=== PATIENT | male | born 1960 | race Two or more races ===

== ENCOUNTER 2017-03-15 21:59 | Inpatient (IN) | payer OTHER ==
[~2017-03-15] VITALS: Ht 172.7 cm; Wt 94.8 kg
[2017-03-15] MEDS ORDERED: LABETALOL 5MG/ML, 20ML IVPush ONE (22:30)
[2017-03-15 22:48] LABS: HEMATOCRIT 43.2 % (39.2-51.8); HEMOGLOBIN 14.8 g/dL (13.7-18.0); WHITE BLOOD COUNT 9.1 x10^3/uL (3.4-10)
[2017-03-15] MEDS ORDERED: LABETALOL 5MG/ML, 20ML ONE (22:52)
[2017-03-15 22:59] LABS: BLOOD UREA NITROGEN 28 mg/dL (7-18)
[2017-03-15] MEDS ORDERED: ASPIRIN 81 MG TABLET CHEW PO ONE (23:00)
[2017-03-15] MEDS ORDERED: ASPIRIN 325 MG TABLET ONE (23:19)
[2017-03-15] MEDS ORDERED: hydrALAzine 20 MG/ML, 1ML IV ONE (23:30)
[2017-03-15] MEDS ORDERED: hydrALAzine 20 MG/ML, 1ML ONE (23:41)
[2017-03-15] MEDS ORDERED: METF25CR PO (23:58)
[2017-03-16] MEDS ORDERED: SODIUM CHLORIDE FLUSH 10ML SYR IVF PRN (00:30)
[2017-03-16] MEDS ORDERED: ENALAPRILAT 1.25 MG/ML, 2ML IV PRN (01:00)
[2017-03-16] MEDS ORDERED: LABETALOL 5MG/ML, 20ML IVPush PRN (01:00)
[2017-03-16] MEDS ORDERED: hydrALAzine 20 MG/ML, 1ML IV PRN (01:00)
[2017-03-16] MEDS ORDERED: NS + 20MEQ KCL 1,000 ML IV SCH (01:01)
[2017-03-16] MEDS ORDERED: POLYETHYLENE GLYCOL 17 GM PACKET PO PRN (01:30)
[2017-03-16] MEDS ORDERED: HYDROcodone/APAP 5/325 TABLET PO PRN (01:30)
[2017-03-16] MEDS ORDERED: DOCUSATE 100 MG CAPSULE PO PRN (01:30)
[2017-03-16] MEDS ORDERED: morphine SULFATE 10 MG/ML, 1ML IVPush PRN (01:30)
[2017-03-16] MEDS ORDERED: ACETAMINOPHEN 325 MG TABLET PO PRN (01:30)
[2017-03-16] MEDS ORDERED: ONDANSETRON 2MG/ML, 2ML IVPush PRN (01:30)
[2017-03-16] MEDS ORDERED: hydrALAzine 20 MG/ML, 1ML ONE (03:10)
[2017-03-16] MEDS ORDERED: ENOXAPARIN 40 MG/0.4 ML ONE (04:15)
[2017-03-16] MEDS ORDERED: NS + 20MEQ KCL 1,000 ML IV ONE (04:15)
[2017-03-16] MEDS: ENOXAPARIN 40 MG/0.4 ML SQ SCH (04:26)
[2017-03-16] MEDS: ASPIRIN 325 MG TABLET EC PO SCH (06:00)
[2017-03-16] MEDS: INSULIN ASPART 100 UNITS/ML, PEN SQ-INSULIN SCH ×6 (07:00→20:55)
[2017-03-16] MEDS ORDERED: metFORMIN 500 MG TABLET PO SCH (08:00)
[2017-03-16] MEDS ORDERED: SODIUM CHLORIDE 0.9% 1,000 ML IV SCH (11:00)
[2017-03-16] MEDS ORDERED: DEXTROSE 50%, 50ML SYRINGE IVPush PRN (11:00)
[2017-03-16] MEDS ORDERED: GLUCAGON 1 MG IM PRN (11:00)
[2017-03-16] MEDS ORDERED: DEXTROSE 4 GM TAB.CHEW PO PRN (11:00)
[2017-03-16 11:34] LABS: BLOOD UREA NITROGEN 21 mg/dL (7-18)
[2017-03-16 15:40] VITALS: BP 172/107
[2017-03-16 19:56] VITALS: BP 200/99
[2017-03-16] MEDS: SODIUM CHLORIDE FLUSH 10ML SYR IVF SCH (20:49)
[2017-03-16] MEDS: SIMVASTATIN 20 MG TABLET PO SCH (20:54)
[2017-03-17] VITALS (9 sets, daily range): BP systolic 135–216; BP diastolic 90–133
[2017-03-17] MEDS: SODIUM CHLORIDE 0.9% 1,000 ML IV SCH ×3 (00:15→20:41)
[2017-03-17] MEDS: LABETALOL 5MG/ML, 20ML IVPush PRN ×2 (02:56→08:53)
[2017-03-17] MEDS: ASPIRIN 325 MG TABLET EC PO SCH (05:50)
[2017-03-17] MEDS: ENOXAPARIN 40 MG/0.4 ML SQ SCH (05:52)
[2017-03-17 06:51] LABS: HEMATOCRIT 42.7 % (39.2-51.8); HEMOGLOBIN 14.4 g/dL (13.7-18.0); WHITE BLOOD COUNT 11.3 x10^3/uL (3.4-10)
[2017-03-17 07:07] LABS: BLOOD UREA NITROGEN 17 mg/dL (7-18)
[2017-03-17] MEDS: SODIUM CHLORIDE FLUSH 10ML SYR IVF SCH ×2 (08:32→21:00)
[2017-03-17] MEDS: INSULIN ASPART 100 UNITS/ML, PEN SQ-INSULIN SCH ×4 (08:33→20:42)
[2017-03-17] MEDS: SIMVASTATIN 20 MG TABLET PO SCH (20:41)
[2017-03-18 00:16] VITALS: BP_SYST 189; BP_SYST 197; BP_DIAS 113; BP_DIAS 114
[2017-03-18 04:23] VITALS: BP 183/120
[2017-03-18] MEDS: SODIUM CHLORIDE 0.9% 1,000 ML IV SCH ×2 (06:00→15:54)
[2017-03-18] MEDS: ASPIRIN 325 MG TABLET EC PO SCH (06:00)
[2017-03-18] MEDS: INSULIN ASPART 100 UNITS/ML, PEN SQ-INSULIN SCH ×4 (07:00→20:08)
[2017-03-18 07:05] VITALS: BP 205/74
[2017-03-18] MEDS: SODIUM CHLORIDE FLUSH 10ML SYR IVF SCH ×2 (09:00→20:08)
[2017-03-18] MEDS: ENOXAPARIN 40 MG/0.4 ML SQ SCH (09:45)
[2017-03-18 14:07] VITALS: BP 190/119
[2017-03-18] MEDS: LABETALOL 5MG/ML, 20ML IVPush PRN (14:49)
[2017-03-18 14:52] VITALS: BP 219/110
[2017-03-18 20:04] VITALS: BP 194/123
[2017-03-18] MEDS: SIMVASTATIN 20 MG TABLET PO SCH (20:08)
[2017-03-19 00:05] VITALS: BP 204/122
[2017-03-19] MEDS: SODIUM CHLORIDE 0.9% 1,000 ML IV SCH ×3 (03:53→21:28)
[2017-03-19 04:05] VITALS: BP 190/105
[2017-03-19 04:46] LABS: HEMATOCRIT 43.2 % (39.2-51.8); HEMOGLOBIN 14.6 g/dL (13.7-18.0); WHITE BLOOD COUNT 10.9 x10^3/uL (3.4-10)
[2017-03-19] MEDS: ASPIRIN 325 MG TABLET EC PO SCH (06:02)
[2017-03-19 07:04] VITALS: BP 202/114
[2017-03-19] MEDS: AMLODIPINE 5 MG TABLET PO SCH (09:41)
[2017-03-19] MEDS: INSULIN ASPART 100 UNITS/ML, PEN SQ-INSULIN SCH ×4 (09:42→21:29)
[2017-03-19] MEDS: SODIUM CHLORIDE FLUSH 10ML SYR IVF SCH ×2 (09:43→21:29)
[2017-03-19] MEDS: ENOXAPARIN 40 MG/0.4 ML SQ SCH (09:43)
[2017-03-19 13:27] VITALS: BP 168/93
[2017-03-19 20:21] VITALS: BP 188/115
[2017-03-19] MEDS: SIMVASTATIN 20 MG TABLET PO SCH (21:28)
[2017-03-20 01:35] VITALS: BP 190/102
[2017-03-20] MEDS: ASPIRIN 325 MG TABLET EC PO SCH (05:12)
[2017-03-20] MEDS: INSULIN ASPART 100 UNITS/ML, PEN SQ-INSULIN SCH ×4 (09:00→20:20)
[2017-03-20 09:18] VITALS: BP 159/97
[2017-03-20] MEDS ORDERED: ASPI-650 PO (10:11)
[2017-03-20] MEDS ORDERED: AMLO5TAB2 PO (10:11)
[2017-03-20] MEDS: AMLODIPINE 5 MG TABLET PO SCH (10:25)
[2017-03-20] MEDS: ENOXAPARIN 40 MG/0.4 ML SQ SCH (10:25)
[2017-03-20] MEDS: SODIUM CHLORIDE FLUSH 10ML SYR IVF SCH ×2 (10:26→20:20)
[2017-03-20] MEDS: SODIUM CHLORIDE 0.9% 1,000 ML IV SCH ×2 (10:26→20:20)
[2017-03-20 13:21] VITALS: BP 140/89
[2017-03-20] MEDS ORDERED: DEXTROSE 50%, 50ML SYRINGE IVPush PRN (19:00)
[2017-03-20] MEDS ORDERED: ONDANSETRON 2MG/ML, 2ML IVPush PRN (19:00)
[2017-03-20] MEDS ORDERED: POLYETHYLENE GLYCOL 17 GM PACKET PO PRN (19:00)
[2017-03-20] MEDS ORDERED: ACETAMINOPHEN 325 MG TABLET PO PRN (19:00)
[2017-03-20] MEDS ORDERED: DEXTROSE 4 GM TAB.CHEW PO PRN (19:00)
[2017-03-20] MEDS ORDERED: GLUCAGON 1 MG IM PRN (19:00)
[2017-03-20] MEDS ORDERED: morphine SULFATE 10 MG/ML, 1ML IVPush PRN (19:00)
[2017-03-20] MEDS ORDERED: HYDROcodone/APAP 5/325 TABLET PO PRN (19:00)
[2017-03-20] MEDS ORDERED: DOCUSATE 100 MG CAPSULE PO PRN (19:00)
[2017-03-20 19:36] VITALS: BP 192/94
[2017-03-20] MEDS: SIMVASTATIN 20 MG TABLET PO SCH (20:20)
[2017-03-20 23:51] VITALS: BP 186/104
[2017-03-21 02:21] VITALS: BP 175/98
[2017-03-21] MEDS: SODIUM CHLORIDE 0.9% 1,000 ML IV SCH (05:24)
[2017-03-21] MEDS: ASPIRIN 325 MG TABLET EC PO SCH (05:24)
[2017-03-21 06:57] VITALS: BP 165/110
[2017-03-21] MEDS: INSULIN ASPART 100 UNITS/ML, PEN SQ-INSULIN SCH ×4 (07:00→21:02)
[2017-03-21 08:45] LABS: BLOOD UREA NITROGEN 14 mg/dL (7-18)
[2017-03-21] MEDS: AMLODIPINE 5 MG TABLET PO SCH (09:00)
[2017-03-21] MEDS: SODIUM CHLORIDE FLUSH 10ML SYR IVF SCH ×2 (09:00→21:01)
[2017-03-21] MEDS: ENOXAPARIN 40 MG/0.4 ML SQ SCH (09:35)
[2017-03-21 12:16] VITALS: BP 157/97
[2017-03-21] MEDS ORDERED: ATOR40TA78 PO (13:17)
[2017-03-21 14:15] VITALS: BP 164/109
[2017-03-21 20:00] VITALS: BP 175/95
[2017-03-21] MEDS: ATORVASTATIN 40 MG TABLET PO SCH (21:01)
[2017-03-22 02:30] VITALS: BP 204/118
[2017-03-22 05:12] LABS: HEMOGLOBIN 14.9 g/dL (13.7-18.0); WHITE BLOOD COUNT 10.3 x10^3/uL (3.4-10)
[2017-03-22] MEDS: ASPIRIN 325 MG TABLET EC PO SCH (05:16)
[2017-03-22 05:17] VITALS: BP 201/113
[2017-03-22 05:19] LABS: ASPARTATE AMINO TRANSFERASE 24 U/L (15-37); BLOOD UREA NITROGEN 17 mg/dL (7-18)
[2017-03-22] MEDS ORDERED: LISINOPRIL 10 MG TABLET PO SCH (07:00)
[2017-03-22] MEDS: INSULIN ASPART 100 UNITS/ML, PEN SQ-INSULIN SCH ×4 (07:00→20:34)
[2017-03-22 08:15] VITALS: BP 161/104
[2017-03-22] MEDS ORDERED: LISI-167 PO (08:45)
[2017-03-22] MEDS: AMLODIPINE 5 MG TABLET PO SCH (08:55)
[2017-03-22] MEDS: ENOXAPARIN 40 MG/0.4 ML SQ SCH (08:56)
[2017-03-22] MEDS: metFORMIN 850 MG TABLET PO SCH ×2 (08:56→16:49)
[2017-03-22] MEDS: SODIUM CHLORIDE FLUSH 10ML SYR IVF SCH ×2 (09:00→20:29)
[2017-03-22] MEDS ORDERED: hydrALAzine 20 MG/ML, 1ML IV PRN (09:00)
[2017-03-22] MEDS ORDERED: ENALAPRILAT 1.25 MG/ML, 2ML IV PRN (09:00)
[2017-03-22] MEDS ORDERED: LABETALOL 5MG/ML, 20ML IVPush PRN (09:00)
[2017-03-22 13:12] VITALS: BP 148/86
[2017-03-22 20:00] VITALS: BP 172/92
[2017-03-22 20:27] VITALS: BP 169/94
[2017-03-22] MEDS: LISINOPRIL 10 MG TABLET PO SCH (20:29)
[2017-03-22] MEDS: ATORVASTATIN 40 MG TABLET PO SCH (20:29)
[2017-03-23] VITALS (7 sets, daily range): BP systolic 131–177; BP diastolic 77–103
[2017-03-23] MEDS: ASPIRIN 325 MG TABLET EC PO SCH (05:25)
[2017-03-23] MEDS: LISINOPRIL 10 MG TABLET PO SCH ×2 (08:20→20:31)
[2017-03-23] MEDS: metFORMIN 850 MG TABLET PO SCH ×2 (08:20→18:10)
[2017-03-23] MEDS: SODIUM CHLORIDE FLUSH 10ML SYR IVF SCH ×2 (08:20→20:31)
[2017-03-23] MEDS: ENOXAPARIN 40 MG/0.4 ML SQ SCH (08:20)
[2017-03-23] MEDS: AMLODIPINE 5 MG TABLET PO SCH (08:20)
[2017-03-23] MEDS: INSULIN ASPART 100 UNITS/ML, PEN SQ-INSULIN SCH ×4 (09:03→20:31)
[2017-03-23] MEDS: ATORVASTATIN 40 MG TABLET PO SCH (20:31)
[2017-03-24] VITALS (7 sets, daily range): BP systolic 137–195; BP diastolic 79–99
[2017-03-24] MEDS: ASPIRIN 325 MG TABLET EC PO SCH (05:06)
[2017-03-24] MEDS: INSULIN ASPART 100 UNITS/ML, PEN SQ-INSULIN SCH ×4 (07:00→19:59)
[2017-03-24] MEDS: ENOXAPARIN 40 MG/0.4 ML SQ SCH (08:20)
[2017-03-24] MEDS: metFORMIN 850 MG TABLET PO SCH ×2 (08:21→16:30)
[2017-03-24] MEDS: AMLODIPINE 5 MG TABLET PO SCH (08:21)
[2017-03-24] MEDS: SODIUM CHLORIDE FLUSH 10ML SYR IVF SCH ×2 (08:21→19:58)
[2017-03-24] MEDS: LISINOPRIL 10 MG TABLET PO SCH ×2 (08:21→19:58)
[2017-03-24] MEDS: ATORVASTATIN 40 MG TABLET PO SCH (19:57)
[2017-03-25 01:48] VITALS: BP 198/102
[2017-03-25 02:39] VITALS: BP 149/85
[2017-03-25] MEDS: ASPIRIN 325 MG TABLET EC PO SCH (05:30)
[2017-03-25] MEDS: INSULIN ASPART 100 UNITS/ML, PEN SQ-INSULIN SCH ×2 (07:00→11:00)
[2017-03-25 08:03] VITALS: BP 145/85
[2017-03-25] MEDS: ENOXAPARIN 40 MG/0.4 ML SQ SCH (08:33)
[2017-03-25] MEDS: SODIUM CHLORIDE FLUSH 10ML SYR IVF SCH (08:34)
[2017-03-25] MEDS: metFORMIN 850 MG TABLET PO SCH (08:34)
[2017-03-25] MEDS: LISINOPRIL 10 MG TABLET PO SCH (08:35)
[2017-03-25] MEDS: AMLODIPINE 5 MG TABLET PO SCH (08:35)
[2017-03-25] MEDS ORDERED: METF850T PO (09:44)
[2017-03-25] MEDS ORDERED: HYDR-3341 PO (09:44)
== END 2017-03-25 13:28 | DRG 64 ==
LOC: ED 23:38 → EDIP 03-16 00:22 → 4EST 03-16 12:49
PROVIDERS: ADMIT Family Medicine; ATTEND Family Medicine
DX: I63.511 Cerebral infarction due to unspecified occlusion or stenosis of right middle cerebral artery (principal); N17.0 Acute kidney failure with tubular necrosis; I16.1 Hypertensive emergency; G81.94 Hemiplegia, unspecified affecting left nondominant side; E11.9 Type 2 diabetes mellitus without complications; E66.9 Obesity, unspecified; E87.6 Hypokalemia; I10 Essential (primary) hypertension; E78.5 Hyperlipidemia, unspecified; I35.0 Nonrheumatic aortic (valve) stenosis; Z79.82 Long term (current) use of aspirin; Z79.84 Long term (current) use of oral hypoglycemic drugs; Z79.899 Other long term (current) drug therapy; Z82.49 Family history of ischemic heart disease and other diseases of the circulatory system; Z83.3 Family history of diabetes mellitus; Z86.73 Personal history of transient ischemic attack (TIA), and cerebral infarction without residual deficits; Z68.31 Body mass index [BMI] 31.0-31.9, adult
CPT/HCPCS: 36415; 70450; 70551; 80048; 80053; 80061; 82040; 82962; 83036; 83735; 85025; 85610; 85730; 87324; 93005; 93306; 93880; 96361; 96372; 96374; 96375; J1650; J1815; J3480; 92523-GN; J0360; J7030